=== PATIENT | female | born 1985 | race American Indian/Alaskan Native ===

== ENCOUNTER 2019-11-14 20:31 | Emergency (ER) | payer SELFPAY ==
[2019-11-14 22:11] VITALS: BP 108/56
[2019-11-14] MEDS ORDERED: ACETAMINOPHEN 325 MG TAB PO ONE (22:11)
[2019-11-15] MEDS ORDERED: DIPHtheria,PERTUSSIS(ACELL),TETANUS VACCINE/PF 0.5 ML VIAL IM ONE (00:59)
[2019-11-15] MEDS ORDERED: LIDOCAINE-MPF (1%) 10 MG/1 ML VIAL 5 ML INFILTRATI ONE (00:59)
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
== END 2019-11-15 03:00 | disposition home or self-care (01) ==
LOC: ED 20:31
DX: S01.01XA Laceration without foreign body of scalp, initial encounter (principal); Z79.899 Other long term (current) drug therapy; Z98.890 Other specified postprocedural states; V49.49XA Driver injured in collision with other motor vehicles in traffic accident, initial encounter; Y92.410 Unspecified street and highway as the place of occurrence of the external cause; Y93.89 Activity, other specified; Y99.8 Other external cause status
CPT/HCPCS: 90471; 90715